=== PATIENT | male | born 1995 | race Caucasian/White ===

== ENCOUNTER 2018-11-30 19:21 | Emergency (ER) | payer SELFPAY ==
[~2018-11-30] VITALS: Ht 172.7 cm; Wt 84.5 kg
[2018-11-30 19:30] VITALS: BP 135/87
[2018-11-30 20:40] LABS: ALBUMIN 4.5 g/dL (3.4-5.0); ANION GAP 7 mmol/L (5-15); CALCIUM 9.1 mg/dL (8.5-10.1); CHLORIDE 108 mmol/L (98-107); CREATININE 0.98 mg/dL (0.7-1.3)
[2018-11-30 20:44] LABS: CREATINE KINASE, TOTAL 124 U/L (39-308); TROPONIN I < 0.015 ng/mL (0.000-0.045)
== END 2018-11-30 21:03 | disposition home or self-care (01) ==
LOC: EDBD → ED 20:57
DX: T75.4XXA Electrocution, initial encounter (principal); R07.89 Other chest pain; W86.8XXA Exposure to other electric current, initial encounter; Y93.89 Activity, other specified; Y92.89 Other specified places as the place of occurrence of the external cause; Y99.8 Other external cause status
CPT/HCPCS: 36415; 80048; 82040; 82550; 84484; 93005; 99284